=== PATIENT | female | born 1960 | race Caucasian/White ===

== ENCOUNTER 2016-10-20 13:02 | Observation (INO) | payer OTHER, BC, SELFPAY ==
[2016-10-20] MEDS ORDERED: LOVASTATIN20 M2 PO (13:42)
[2016-10-20] MEDS ORDERED: LISINOPRIL-HCT1 EAC1 PO (13:42)
[2016-10-20 14:16] LABS: BASO % 0.2 % (0-2); EOS % 0.9 % (0-7); EOSINOPHIL ABSOLUTE COUNT 0.1 tho/cmm (0.0-0.7); HCT-HEMATOCRIT 44.1 % (34.0-49.0); HGB-HEMOGLOBIN 15.4 gm/dl (12.0-15.5); IMMATURE GRANULOCYTES ABSOLUTE 0.02 tho/cmm (0-0.03); IMMATURE GRANULOCYTES PERCENT 0.2 % (0-0.3); LYMPH ABSOLUTE COUNT 2.5 tho/cmm (0.8-4.5); MCH (MEAN CORPUSCULAR HGB) 31.2 pg (28.0-32.0); MCHC MEAN CORPUSCULAR HGB CONC 34.9 % (32.0-36.0); MCV (MEAN CELL VOLUME) 89.3 fl (82.0-96.0); MONO % 5.8 % (0-12); MONOCYTE ABSOLUTE COUNT 0.5 tho/cmm (0.0-1.2); NEUTROPHIL ABSOLUTE COUNT 5.4 tho/cmm (1.6-8.0); NEUTROPHIL-AUTOMATED 5.4 tho/cmm (1.6-8.0); NEUTROPHILS % 63.9 % (40-80); PLATELET COUNT 233 tho/cmm (150-450); RED BLOOD COUNT 4.94 mil/cmm (4.00-5.20); RED CELL DISTRIBUTION WIDTH 12.9 % (12.4-16.4); WHITE BLOOD COUNT 8.5 tho/cmm (4.0-10.0)
[2016-10-20 14:21] LABS: PROTHROMBIN TIME 11.7 SECONDS (9.0-13.6)
[2016-10-20 14:32] LABS: ALB/GLOB RATIO 0.9 (0.8-2.0); ALBUMIN 3.5 g/dl (3.5-5.0); ALKALINE PHOSPHATASE 79 U/L (33-138); ALT/SGPT 21 U/L (12-78); ANION GAP 12 mmol/L (0-20); AST/SGOT 11 U/L (10-40); BILIRUBIN,TOTAL 0.4 mg/dl (0-1.5); BLOOD UREA NITROGEN 11 mg/dl (6-24); CALCIUM 9.3 mg/dl (8.5-10.5); CARBON DIOXIDE-VENOUS 29 mmol/L (22-32); CHLORIDE 104 mmol/l (96-110); CREATININE 0.88 mg/dl (0.50-1.10); GLUCOSE 121 mg/dL (70-110); POTASSIUM 3.7 mmol/L (3.7-5.1); SODIUM 141 mmol/L (135-145); eGFR VALUE FOR BLACK 86 mL/Min
[2016-10-20 14:44] LABS: ESR-ERYTHROCYTE SED RATE 5 mm/hr (0-30)
--- NOTE | 2016-10-21 15:43 | NUR ---
PT STATES SHE TOOK HER OWN MEDS THIS AM.
[2016-10-22] MEDS ORDERED: ASPIRIN325 M3 PO (14:44)
[2016-10-22] MEDS ORDERED: GLUCOPHAGE XR500 M1 PO (14:45)
== END 2016-10-22 18:10 ==
LOC: EDMED 13:02 → EMR2 16:20 → 5EB 18:57
PROVIDERS: Emergency Medicine; ADMIT Family Medicine
DX: I63.9 Cerebral infarction, unspecified (principal); I10 Essential (primary) hypertension; E78.5 Hyperlipidemia, unspecified; F17.210 Nicotine dependence, cigarettes, uncomplicated; E11.9 Type 2 diabetes mellitus without complications; Z79.82 Long term (current) use of aspirin; Z98.51 Tubal ligation status; Z98.890 Other specified postprocedural states; Z88.0 Allergy status to penicillin
CPT/HCPCS: C8929; G0378; G8978-GP-CK; G8979-GP-CJ; G8980-GP-CJ; G8987-GO-CJ; G8988-GO-CI; G8989-GO-CJ